=== PATIENT | male | born 2000 | race American Indian/Alaskan Native ===

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

== ENCOUNTER 2020-08-31 07:49 | Emergency (ER) | payer SELFPAY ==
--- NOTE | 2020-08-31 08:35 | XRay Report ---
CHEST 2 VIEWS 0808 INDICATION / CLINICAL INFORMATION: CP SOB COMPARISON: None available. FINDINGS: SUPPORT DEVICES: None. HEART / MEDIASTINUM: No significant abnormality. LUNGS / PLEURA: No significant pulmonary or pleural abnormality. No pneumothorax. ADDITIONAL FINDINGS: No significant additional findings. IMPRESSION: No significant acute abnormality Signer Name: Michoacano Ureña MD Signed: 08/31/2020 8:31 AM Workstation Name: [id number]
[2020-08-31 10:08] LABS: Basophils % (Auto) 0.5 % (0.0-1.8); Eosinophils # (Auto) 0.2 K/mm3 (0.0-0.4); Eosinophils % (Auto) 4.6 % (0.0-4.3); Hematocrit 47.5 % (35.5-45.6); Hemoglobin 15.8 gm/dl (11.8-15.2); Lymphocytes # (Auto) 1.3 K/mm3 (1.2-5.4); Mean Corpuscular HGB Conc 33 % (32-34); Mean Corpuscular Volume 81 fl (84-94); Monocytes # (Auto) 0.7 K/mm3 (0.0-0.8); Monocytes % (Auto) 14.4 % (0.0-7.3); Platelet Count 186 K/mm3 (140-440); Red Blood Count 5.85 M/mm3 (3.65-5.03); Red Cell Distribution Width 13.1 % (13.2-15.2)
[2020-08-31 10:22] LABS: Alanine Aminotransferase 13 units/L (7-56); Albumin 4.7 g/dL (3.9-5); BUN/Creatinine Ratio 9; Blood Urea Nitrogen 8 mg/dL (9-20); Hemolysis Index 7
[2020-08-31] MEDS ORDERED: dexAMETHasone 20 MG/5 ML VIAL IM ONE (10:25)
[2020-08-31] MEDS ORDERED: ALBUTEROL 2.5 MG/3 ML NEBU IH ONE (10:25)
[2020-08-31] MEDS ORDERED: IPRATROPIUM 0.02% NEBU 2.5 ML IH ONE (10:25)
--- NOTE | 2020-08-31 10:58 | Electrocardiograph Report ---
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
--- NOTE | 2020-08-31 11:30 | Emergency Department Report ---
ED Asthma HPI - General Chief Complaint: Chest Pain Stated Complaint: CHEST PAIN, SHORT OF BREATH Time Seen by Provider: 08/31/20 10:23 Source: patient Mode of arrival: Ambulatory Limitations: No Limitations - History of Present Illness Initial Comments: Patient is a 20-year-old male presents emergency room with complaints of chest tightness, shortness of breath, wheezing that began 2-3 days ago. He has associated mild dry cough. He denies any fever, nausea, vomiting, diarrhea, sore throat, ear pain, productive cough. He denies any known sick contacts or recent travel. He states he has a past medical history of asthma but has not used an inhaler in approximately 2 to 3 years. He endorses marijuana use but denies tobacco use. No allergies to medicines. - Related Data Previous Rx's Medication Instructions Recorded Last Taken Type HYDROcodone/ACETAMINOPHEN [[place] 1 each PO QDAY PRN #10 tablet 04/23/17 Unknown Rx 5-325 Tablet] cephALEXin [Keflex] 1,000 mg PO Q12HR #28 cap 04/23/17 Unknown Rx ALBUTEROL NEB's [Proventil 0.083% 2.5 mg IH TID PRN #1 box 08/31/20 Unknown Rx NEBS] Albuterol Sulfate [Proventil Hfa] 1 puff IH TID PRN #1 hfa.aer.ad 08/31/20 Unknown Rx Prednisone [predniSONE 10 mg 10 mg PO .TAPER #1 tab.ds.pk 08/31/20 Unknown Rx (6-Day Pack, 21 Tabs)] Allergies Allergy/AdvReac Type Severity Reaction Status Date / Time No Known Allergies Allergy Verified 08/31/20 07:54 ED Review of Systems ROS: Stated complaint: CHEST PAIN, SHORT OF BREATH Other details as noted in HPI Comment: All other systems reviewed and negative ED Past Medical Hx - Past Medical History Hx Asthma: Yes - Surgical History Additional Surgical History: HERNIA/ TUBES IN EARS - Social History Smoking Status: Never Smoker Substance Use Type: None - Medications Home Medications: Home Medications Medication Instructions Recorded Confirmed Last Taken Type HYDROcodone/ACETAMINOPHEN [[place] 1 each PO QDAY PRN #10 tablet 04/23/17 Unknown Rx 5-325 Tablet] cephALEXin [Keflex] 1,000 mg PO Q12HR #28 cap 04/23/17 Unknown Rx ALBUTEROL NEB's [Proventil 0.083% 2.5 mg IH TID PRN #1 box 08/31/20 Unknown Rx NEBS] Albuterol Sulfate [Proventil Hfa] 1 puff IH TID PRN #1 hfa.aer.ad 08/31/20 Unknown Rx Prednisone [predniSONE 10 mg 10 mg PO .TAPER #1 tab.ds.pk 08/31/20 Unknown Rx (6-Day Pack, 21 Tabs)] ED Physical Exam - General Limitations: No Limitations General appearance: alert, in no apparent distress - Head Head exam: Present: atraumatic, normocephalic - Eye Eye exam: Present: normal appearance - ENT ENT exam: Present: mucous membranes moist - Respiratory Respiratory exam: Present: wheezes (bilaterally), prolonged expiratory. Absent: respiratory distress, rales, rhonchi, stridor, chest wall tenderness, accessory muscle use, decreased breath sounds - Cardiovascular Cardiovascular Exam: Present: regular rate, normal rhythm, normal heart sounds. Absent: systolic murmur, diastolic murmur, rubs, gallop - Neurological Exam Neurological exam: Present: alert, oriented X3 - Psychiatric Psychiatric exam: Present: normal affect, normal mood - Skin Skin exam: Present: warm, dry, intact ED Course Vital Signs 08/31/20 08/31/20 08/31/20 07:54 10:44 11:56 Temperature 99.0 F Pulse Rate 89 72 Pulse Rate [ 87 Bilateral] Respiratory 20 17 Rate Respiratory 18 Rate [Bilateral ] Blood Pressure 140/98 Blood Pressure 137/85 [Right] O2 Sat by Pulse 94 98 Oximetry ED Medical Decision Making - Lab Data Result diagrams: 08/31/20 09:42 08/31/20 09:42 Lab Results 08/31/20 08/31/20 Range/Units 09:42 09:42 WBC 4.7 (4.5-11.0) K/mm3 RBC 5.85 H (3.65-5.03) M/mm3 Hgb 15.8 H (11.8-15.2) gm/dl Hct 47.5 H (35.5-45.6) % MCV 81 L (84-94) fl MCH 27 L (28-32) pg MCHC 33 (32-34) % RDW 13.1 L (13.2-15.2) % Plt Count 186 (140-440) K/mm3 Lymph % (Auto) 28.0 (13.4-35.0) % [place] % (Auto) 14.4 H (0.0-7.3) % Eos % (Auto) 4.6 H (0.0-4.3) % Baso % (Auto) 0.5 (0.0-1.8) % Lymph # (Auto) 1.3 (1.2-5.4) K/mm3 [place] # (Auto) 0.7 (0.0-0.8) K/mm3 Eos # (Auto) 0.2 (0.0-0.4) K/mm3 Baso # (Auto) 0.0 (0.0-0.1) K/mm3 Seg Neutrophils % 52.5 (40.0-70.0) % Seg Neutrophils # 2.5 (1.8-7.7) K/mm3 Sodium 141 (137-145) mmol/L Potassium 4.0 (3.6-5.0) mmol/L Chloride 101.2 (98-107) mmol/L Carbon Dioxide 30 (22-30) mmol/L Anion Gap 14 mmol/L BUN 8 L (9-20) mg/dL Creatinine 0.9 (0.8-1.3) mg/dL Estimated GFR > 60 ml/min BUN/Creatinine Ratio 9 % Glucose 89 (75-100) mg/dL Calcium 10.0 (8.4-10.2) mg/dL Total Bilirubin 0.70 (0.1-1.2) mg/dL AST 16 (5-40) units/L ALT 13 (7-56) units/L Alkaline Phosphatase 69 (35-129) units/L Troponin T < 0.010 (0.00-0.029) ng/mL Total Protein 7.2 (6.3-8.2) g/dL Albumin 4.7 (3.9-5) g/dL Albumin/Globulin Ratio 1.9 % Vital Signs 08/31/20 08/31/20 08/31/20 07:54 10:44 11:56 Temperature 99.0 F Pulse Rate 89 72 Pulse Rate [ 87 Bilateral] Respiratory 20 17 Rate Respiratory 18 Rate [Bilateral ] Blood Pressure 140/98 Blood Pressure 137/85 [Right] O2 Sat by Pulse 94 98 Oximetry - EKG Data EKG shows normal: sinus rhythm, axis, intervals, QRS complexes, ST-T waves Rate: normal - Radiology Data Radiology results: report reviewed Ordering Physician: SUELLEN LANCASTER MD Date of Service: 08/31/20 Procedure(s): XR chest routine 2V Accession Number(s): [id number] cc: SUELLEN LANCASTER MD Fluoro Time In Minutes: CHEST 2 VIEWS 0808 INDICATION / CLINICAL INFORMATION: CP SOB COMPARISON: None available. FINDINGS: SUPPORT DEVICES: None. HEART / MEDIASTINUM: No significant abnormality. LUNGS / PLEURA: No significant pulmonary or pleural abnormality. No pneumothorax. ADDITIONAL FINDINGS: No significant additional findings. IMPRESSION: No significant acute abnormality Signer Name: Michoacano Ureña MD Signed: 08/31/2020 8:31 AM Workstation Name: [id number] Transcribed By: TIMOTHY Dictated By: Michoacano Ureña MD Electronically Authenticated By: Michoacano Ureña MD Signed Date/Time: 08/31/20830 DD/ 9 TD/TT: Print Cancel - Medical Decision Making Patient is a 20-year-old male presents emergency room with complaints of chest tightness, shortness of breath, wheezing that began 2-3 days ago. He has associated mild dry cough. He denies any fever, nausea, vomiting, diarrhea, sore throat, ear pain, productive cough. He denies any known sick contacts or recent travel. He states he has a past medical history of asthma but has not used an inhaler in approximately 2 to 3 years. He endorses marijuana use but denies tobacco use. No allergies to medicines. Vitals are stable. Orders plac ed prior to my examination. On exam patient has wheezing and prolonged expiratory phase. EKG is within normal limits. Chest x-ray with no acute process. Labs are stable. Patient given nebulizer treatment and dexamethasone IM on the emergency department. On reexamination patient is feeling much better, wheezing has improved. Patient given prescription for medications. Advised patient Please take medication as prescribed. Follow-up with a primary care doctor. Return to emergency room for any new or worsening symptoms. Critical care attestation.: If time is entered above; I have spent that time in minutes in the direct care of this critically ill patient, excluding procedure time. ED Disposition Clinical Impression: Asthma Qualifiers: Asthma severity: unspecified severity Asthma persistence: unspecified Asthma complication type: with acute exacerbation Qualified Code(s): J45.901 - Unspecified asthma with (acute) exacerbation Disposition: - TO HOME OR SELFCARE Is pt being admited?: No Does the pt Need Aspirin: No Condition: Stable Instructions: Asthma, Adult, Asthma (ED) Additional Instructions: Please take medication as prescribed. Follow-up with a primary care doctor. Return to emergency room for any new or worsening symptoms. Prescriptions: Prednisone [predniSONE 10 mg (6-Day Pack, 21 Tabs)] 10 mg PO .TAPER #1 tab.ds.pk ALBUTEROL NEB's [Proventil 0.083% NEBS] 2.5 mg IH TID PRN #1 box PRN Reason: Wheezing Albuterol Sulfate [Proventil Hfa] 1 puff IH TID PRN #1 hfa.aer.ad PRN Reason: shortness of breath/wheezing Referrals: PRIMARY MD SIMONE [Primary Care Provider] - 2-3 Days JOHNATHAN FLORES MD [Staff Physician] - 2-3 Days [facility] [Provider Group] - 2-3 Days Time of Disposition: 11:29 Print Language: MOHAW[place]
[2020-08-31 11:57] VITALS: BP 137/85
== END 2020-08-31 11:57 | disposition home or self-care (01) ==
LOC: ED 07:49
DX: J45.909 Unspecified asthma, uncomplicated (principal); Z79.899 Other long term (current) drug therapy
CPT/HCPCS: 36415; 71046; 80053; 84484; 85025; 93005; 94640; 96372; 99284; J1100; 94644